=== PATIENT | male | born 1985 | race Caucasian/White ===

== ENCOUNTER 2018-02-08 16:17 | Emergency (ER) | payer SELFPAY ==
[~2018-02-08] VITALS: Ht 177.8 cm; Wt 93.6 kg
[2018-02-08] MEDS ORDERED: CEPHALEXIN500 M1 PO (16:31)
[2018-02-08 17:13] VITALS: BP 130/88
== END 2018-02-08 17:21 | disposition home or self-care (01) | DRG 605 ==
LOC: ED 16:17
PROC: 0HQGXZZ Repair Left Hand Skin, External Approach (ICD-10-PCS; principal; 2018-02-08)
DX: S61.412A Laceration without foreign body of left hand, initial encounter (principal); W26.8XXA Contact with other sharp object(s), not elsewhere classified, initial encounter; Y93.E9 Activity, other interior property and clothing maintenance; Y92.009 Unspecified place in unspecified non-institutional (private) residence as the place of occurrence of the external cause

== ENCOUNTER 2018-02-18 18:32 | Emergency (ER) | payer SELFPAY ==
[~2018-02-18] VITALS: Ht 177.8 cm; Wt 95.0 kg
[~2018-02-18 18:32] MED LIST: CEPHALEXIN500 M1 PO
[2018-02-18 19:22] VITALS: BP 135/77
== END 2018-02-18 19:20 | disposition home or self-care (01) | DRG 950 ==
LOC: ED 18:32
DX: S61.402D Unspecified open wound of left hand, subsequent encounter (principal); F17.210 Nicotine dependence, cigarettes, uncomplicated; X58.XXXD Exposure to other specified factors, subsequent encounter